=== PATIENT | female | born 1980 | race African-American/Black ===

== ENCOUNTER 2022-07-30 20:02 | Emergency (ER) | payer OTHER ==
[~2022-07-30] VITALS: Ht 160 cm; Wt 109.0 kg
[2022-07-30] MEDS ORDERED: SODIUM CHLORIDE 0.9% 1,000 ML IV ONE (20:45)
[2022-07-30 21:47] LABS: BASOPHILS % 0.2 % (0.0-2.0); EOSINOPHILS % 0.2 % (0.0-5.0); HEMATOCRIT. 26.7 % (36.0-48.0); HEMOGLOBIN. 8.7 g/dL (12.0-16.0); LYMPHOCYTES % 11.6 % (20.0-50.0); MEAN CORPUSCULAR HEMOGLOBIN 26.9 pg (28.0-32.0); MEAN CORPUSCULAR VOLUME 82.2 fL (81.0-99.0); MEAN PLATELET VOLUME 7.1 fl (7.4-10.4); MONOCYTES % 6.4 % (2.0-8.0); NEUTROPHILS % 81.6 % (40.0-76.0); PLATELET 713 x1000/uL (130-400); RED BLOOD CELL COUNT 3.24 mill/uL (4.2-5.4); RED CELL DISTRIBUTION WIDTH 15.5 % (11.6-14.6)
[2022-07-30 21:55] LABS: CHLORIDE 95 mEq/L (98-107)
[2022-07-30 21:57] LABS: INR 1.5; PROTHROMBIN TIME 15.4 sec (9.6-11.0)
[2022-07-30 21:59] LABS: HCG SCREEN NEGATIVE
[2022-07-30] MEDS ORDERED: PIPERACILLIN/TAZ 3.375G PREMIX 50 ML IV NR (22:30)
[2022-07-30] MEDS ORDERED: ACETAMINOPHEN 500MG TABLET PO ONE (22:30)
[2022-07-30] MEDS ORDERED: VANCOMYCIN 1G PREMIX 200 ML IV SCH (22:30)
[2022-07-30] MEDS ORDERED: PIPERACILLIN/TAZOBACTAM 3.375GM/50ML PREMIX IV ONE (22:30)
[2022-07-31] MEDS ORDERED: ACETAMINOPHEN 500MG TABLET PO NR (01:15)
[2022-07-31] MEDS ORDERED: IOHEXOL-300 100 ML BOTTLE ONE (02:54)
[2022-07-31 06:00] VITALS: BP 129/80
== END 2022-07-31 07:53 | disposition short-term general hospital (02) ==
LOC: ER 20:02
DX: L02.31 Cutaneous abscess of buttock (principal); L89.159 Pressure ulcer of sacral region, unspecified stage; Z20.822 Contact with and (suspected) exposure to COVID-19
CPT/HCPCS: 36415; 74177; 80053; 83605; 84703; 85025; 85610; 86850; 86900; 86901; 87040; 87426; 96365; 96367; 99291; C9803; J2543; J3370; J7030; Q9967; Z7610